=== PATIENT | male | born 1995 | race Caucasian/White ===

== ENCOUNTER 2019-04-10 18:04 | Emergency (ER) | payer SELFPAY ==
[~2019-04-10] VITALS: Ht 180.3 cm; Wt 115.8 kg
[~2019-04-10 18:04] MED LIST: IBUP-1561 PO
[2019-04-10 18:25] VITALS: Ht 180.3 cm; Wt 115.8 kg
[2019-04-10] MEDS ORDERED: ALBUTEROL 0.083% (NEB) 2.5 MG/3 ML AMP NEB STA (19:24)
[2019-04-10] MEDS ORDERED: predniSONE 20 MG TAB PO STA (19:24)
[2019-04-10] MEDS ORDERED: IPRATROPIUM (NEB) 0.5 MG/2.5 ML AMP NEB STA (19:24)
--- NOTE | 2019-04-10 19:26 | ERD ---
ER Documentation Chief Complaint Chief Complaint COUGH, SOB, BODY ACHES X'S 1 MONTH HPI 23-year-old male, with history of asthma, presents to the emergency department, complaining of dry cough, subjective fever and intermittent episodes of wheezing for 1 month. The patient is not taking any medications or inhalers for his symptoms. He denies chest pain, no palpitations, no shortness of breath. ROS All systems reviewed and are negative except as per history of present illness. Medications Home Meds Active Scripts Azithromycin* (Zithromax*) 250 Mg Tablet, 250 MG PO .ZPACK DIRECTED, #6 TAB TAKE 500 MG (2 TABS) THE FIRST DAY THEN 250 MG (1 TAB) DAYS 2-5 Prov:GEOFF JHA MD 04/10/19 Prednisone* (Prednisone*) 20 Mg Tab, 60 MG PO DAILY for 4 Days, TAB Prov:GEOFF JHA MD 04/10/19 Albuterol Sulfate* (Proair HFA*) 8.5 Gm Hfa.aer.ad, 2 PUFF INH Q4H PRN for WHEEZING AND SOB, #1 INHALER Prov:GEOFF JHA MD 04/10/19 Ibuprofen* (Motrin*) 400 Mg Tab, 400 MG PO Q6 for 7 Days, #30 TAB 0 Refills Prov:ABDELRAHMAN MEDRNAO PA-C 07/11/16 Allergies Allergies: Coded Allergies: No Known Allergy (Unverified , 07/11/16) PMhx/Soc Hx Neurological Disorder: No Hx Respiratory Disorders: Yes (ASTHMA) Hx Cardiac Disorders: No Hx Psychiatric Problems: No Hx Miscellaneous Medical Probl: No Hx Alcohol Use: No Hx Substance Use: No Hx Tobacco Use: Yes (3CIG/DAY) Smoking Status: Current some day smoker FmHx Family History: No diabetes, No coronary disease Physical Exam Vitals Vital Signs Date Temp Pulse Resp B/P (MAP) Pulse Ox O2 O2 Flow FiO2 Time Delivery Rate 04/10/19 98.2 76 16 154/86 97 Room Air 20:06 (108) 04/10/19 99 26 96 21 19:40 04/10/19 98.7 86 20 169/89 98 18:25 (115) Physical Exam Patient alert, oriented, mild respiratory distress with cough. HEAD: Normocephalic, atraumatic. EYES: PERRLA, EOMI, Sclera and conjunctiva appear normal. NOSE: clear rhinorrhea . EARS: Canals clear, tympanic membranes WNL. MOUTH: normal lips and tongue, no oral lesions. THROAT: Erythema of the oropharynx, no tonsillar exudates. NECK: Supple, No lymphadenopathy. Full ROM without pain or tenderness. HEART: RRR, no rubs, murmurs, clicks or gallops. LUNGS: Bilateral inspiratory and expiratory wheezing to auscultation. ABDOMEN: Soft, non-tender without masses or hepatosplenomegaly. EXTREMITIES: No edema bilaterally. BACK: Full ROM, no deformity, normal back exam NEURO: Cranial nerves grossly intact, no motor or sensory deficit SKIN: No rashes, no petechia Results 24 hrs Current Medications Medications Dose Sig/Kim Start Time Status Last (Trade) Ordered Route PRN Stop Time Admin Dose Reason Admin Albuterol 5 mg ONCE STAT 04/10/19 DC 04/10/19 (Proventil NEB 19:24 19:38 0.083% (Neb)) 04/10/19 19:31 Ipratropium 0.5 mg ONCE STAT 04/10/19 DC 04/10/19 [place] NEB 19:24 19:39 (Atrovent 04/10/19 19:31 0.02% (Neb)) Prednisone 60 mg ONCE STAT 04/10/19 DC 04/10/19 (Prednisone) PO 19:24 19:35 04/10/19 19:31 Albuterol 5 mg ONCE STAT 04/10/19 DC (Proventil HHN 20:35 0.083% (Neb)) 04/10/19 20:36 Ipratropium 0.5 mg ONCE ONCE 04/10/19 [place] HHN 21:00 (Atrovent 04/10/19 21:01 0.02% (Neb)) Patient: ANNY AVILA : 1995 Age: 23 Sex: M MR #: [id number] DOS: 04/10/19 192 Ordering MD: GEOFF JHA MD Location: [facility] Room/Bed: PROCEDURE: XR Chest PA and Lateral CLINICAL INDICATION: Cough, wheeze x1 month TECHNIQUE: PA and Lateral views of the chest were obtained. COMPARISON: 07/11/2016 FINDINGS: Cardiovascular: The cardiovascular silhouette appears unremarkable. Lung Hernandez: The lung hernandez appear clear with no nodule, alveolar infiltrate, or interstitial prominence evident. Pleural Spaces: No pneumothorax is identified and no effusion is evident. Osseous Structures: The osseous structures appear intact. Soft Tissues: The soft tissues appear unremarkable. IMPRESSION: Stable and unremarkable chest. Procedures/MDM At the time of discharge, vital signs stable, no respiratory distress. Differential diagnosis include but not limited to: Respiratory infection bacterial/viral/fungal. Asthma/COPD, pneumonitis, allergies, GERD. Less likely foreign body aspiration, cardiac related, aspiration pneumonia, malignancy. Physical examination and clinical presentation consistent most likely with acute asthma exacerbation with early superimposed bacterial infection. During the ED course the patient remained stable, received a nebulized treatment and steroids in the ED presenting overall improvement of the symptoms, no new complaints. Clinical impression discussed with the patient who agrees with management. The patient is stable to be treated outpatient and will be discharged home. Some side effects of prescribed medications (headache, rash, nausea, vomiting, diarrhea, drowsiness, habituation, bleeding, hypertension, interactions with other medications) were reviewed. The patient was instructed to follow up with the primary care provider in the next 48h. If symptoms persist, worsen or new symptoms develop, then patient should return to the ED immediately. Disclaimer: Inadvertent spelling and grammatical errors are likely due to EHR/dictation software use and do not reflect on the overall quality of patient care. Also, please note that the electronic time recorded on this note does not necessarily reflect the actual time of the patient encounter. Departure Diagnosis: Primary Impression: Asthma exacerbation Condition: Stable Additional Instructions: Thank you very much for allowing us to participate in your care. Your health and safety is our top priority at [facility]. The evaluation in the emergency department has been done to rule out an acute emergency. Chronic, [id number] conditions may have not been evaluated; therefore, you need to follow up with a primary care provider in the next 48h. If symptoms persist, worsen or new symptoms develop, then patient should return to the ED immediately. Call your primary care doctor TOMORROW for an appointment during the next 2-4 days and bring all the information provided. Have prescriptions filled and follow precisely the directions on the label. If the symptoms get worse and your provider is unavailable, return to the Emergency Department immediately. GEOFF JHA MD 12, 2019 19:26
[2019-04-10] MEDS ORDERED: ALBUTEROL 0.083% (NEB) 2.5 MG/3 ML AMP HHN STA (20:35)
[2019-04-10] MEDS ORDERED: AZIT250T PO (20:46)
[2019-04-10] MEDS ORDERED: PRED20TA PO (20:46)
[2019-04-10] MEDS ORDERED: ALBU8.5H8 INH (20:46)
[2019-04-10] MEDS ORDERED: IPRATROPIUM (NEB) 0.5 MG/2.5 ML AMP HHN ONE (21:00)
[2019-04-10 21:40] VITALS: BP 143/84; PULSE 87; RESP 18
== END 2019-04-10 21:40 | disposition home or self-care (01) ==
LOC: FTE 18:04
DX: J45.901 Unspecified asthma with (acute) exacerbation (principal)
CPT/HCPCS: 71046; 94664; 99284; J7512; 94640

== ENCOUNTER 2019-07-04 14:53 | Emergency (ER) | payer MEDICAID ==
[~2019-07-04] VITALS: Ht 180.3 cm; Wt 119.7 kg
[~2019-07-04 14:53] MED LIST changes: +ALBU8.5H8 INH; +AZIT250T PO; +IBUP800T48 PO; +METH750T93 PO; +PRED20TA PO
[2019-07-04 15:10] VITALS: BP 160/102; PULSE 73; RESP 16; Ht 180.3 cm; Wt 119.7 kg
[2019-07-04] MEDS ORDERED: KETOROLAC 60 MG INJ IM STA (16:15)
[2019-07-04] MEDS ORDERED: METHOCARBAMOL 750 MG TAB PO ONE (16:30)
== END 2019-07-04 16:49 | disposition home or self-care (01) ==
LOC: FTE 14:53
DX: M62.838 Other muscle spasm (principal); J45.909 Unspecified asthma, uncomplicated; F17.210 Nicotine dependence, cigarettes, uncomplicated
CPT/HCPCS: 96372; J1885; Z7502; Z7610